=== PATIENT | male | born 1995 | race Hispanic/Latino ===

== ENCOUNTER 2017-02-18 19:23 | Emergency (ER) | payer OTHER ==
[~2017-02-18] VITALS: Ht 165.1 cm; Wt 68.0 kg
[2017-02-18] MEDS ORDERED: POLYMYXIN B-TMP10 ML OPH (20:09)
--- NOTE | 2017-02-18 20:09 | ED EYE COMPLAINT ---
History of Present Illness General Chief Complaint: Eye Problems Stated Complaint: " SOMETHING IN LT EYE" Source: patient Exam Limitations: no limitations Triage Note: PT TO ED C/O "SOMETHING IN MY LEFT EYE" SINCE 1800. UNSURE WHAT IT IS. TRIED FLUSHING WITH WATER Triage Nurses Notes Reviewed? yes HPI: This patient is a 22-year-old male who presented to the emergency department today for evaluation of right eye pain. The patient reported that at approximately 6:00 he was using a saw to cut a wood when he noticed that there was pain in his eye. He reported that it was very windy and thinks that a piece of the wood flew up into his eye. He reported that he irrigated his eye with water and does not know if it came out or not. He reported that he is having 7 out of 10, sharp, nonradiating, constant pain in his right eye. He reported that his vision is blurry. The patient denied any purulent drainage from his eye, headaches, or any other associated symptoms. (LIZ THOMPSON PA-C) Vital Signs & Intake/Output Vital Signs & Intake/Output Vital Signs Date Time Temp Pulse Resp B/P B/P Pulse O2 O2 Flow FiO2 Mean Ox Delivery Rate 02/18 2038 98.5 60 18 112/64 97 Room Air Room Air 02/18 193 98.4 57 18 110/65 99 Room Air ED Intake and Output 02/19 0000 02/18 1200 Intake Total Output Total Balance Patient 150 lb Weight Weight Reported by Patient Measurement Method Allergies Coded Allergies: NO KNOWN ALLERGIES (02/18/17) Reconcile Medications Polymyxin B Sulf/Trimethoprim (Polymyxin B-Tmp Eye Drops) 10,000 UNIT-1 MG/ML DROPS 1 GTT OPH TID CORNEAL ABRASION (ESMER AMOS,WILLIAM Perdomo) Past History Travel History Traveled to [place] past 21 day No Medical History Any Pertinent Medical History? 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 No (LIZ THOMPSON PA-C) Review of Systems Review of Systems Constitutional: Reports: no symptoms. Eyes: Reports: see HPI. Ear: Reports: no symptoms. Nose: Reports: no symptoms. Mouth: Reports: no symptoms. Throat: Reports: no symptoms. Respiratory: Reports: no symptoms. Cardiovascular: Reports: no symptoms. GI: Reports: no symptoms. Musculoskeletal: Reports: no symptoms. Skin: Reports: no symptoms. Neurological/Psychological: Reports: no symptoms. All Other Systems: Reviewed and Negative (LIZ THOMPSON PA-C) Physical Exam General Appearance: well developed/nourished, no apparent distress, alert, awake General Inspection: normal inspection General Inspection: NO PROPTOSIS. nO PERIORBITAL ERYTHEMA OR EDEMA. eomi. nO PAIN WITH EXTRAOCULAR MUSCLE MOVEMENTS. perrla. nORMAL APPEARANCE OF THE LIDS. nO FOREIGN BODY APPRECIATED IN THE EYE. nO FOREIGN BODY WITH LID LIFT. ph 7.5. fLUORESCEIN UPTAKE NOTED. Physical Exam Comments: Well-developed well-nourished person in no acute distress HEENT: Head normocephalic/atraumatic Neck: Supple, no lymphadenopathy Back: Normal gait Respiratory: No respiratory distress. Speaking in full sentences Extremities: No edema, full range of motion Neuro: Alert and oriented x3 Psych: Mood affect normal, normal memory normal judgment. Skin: Warm and dry, no rash on exposed skin (LIZ THOMPSON PA-C) Progress Differential Diagnosis: corneal abrasion, corneal foreign body, conjunctivitis, detached retina, glaucoma, globe rupture, retinal art./v. occlusion Plan of Care: This patient is a 22-year-old male who presented for evaluation of possible foreign body in the right eye. No foreign body appreciated in the eye or with the lid lift. This patient did irrigate his eye prior to coming to the emergency department. Fluorescein uptake was noted; likely corneal abrasion. This patient will be placed on ophthalmic antibiotic eyedrops. He does have an lab support technician who he will be following up with. This patient does not wear contacts. (LIZ THOMPSON PA-C) Departure Departure Disposition: HOME OR SELF CARE Condition: Stable Clinical Impression Primary Impression: Corneal abrasion Qualifiers: Encounter type: initial encounter Laterality: right Qualified Code: S05.01XA - Injury of conjunctiva and corneal abrasion without foreign body, right eye, initial encounter Referrals: JUSTIN CHIN DO (PCP/Family) TARIQ AMOS,EMELI Rivera Additional Instructions: Please use antibiotic eyedrops as prescribed and for the full duration. Do not put anything in your eye such as contacts. Please follow up with either your lab support technician or with the lab support technician's information has been provided to this packet. Return for any worsening symptoms or concerns. Departure Forms: Customer Survey General Discharge Information Prescriptions: Current Visit Scripts Polymyxin B Sulf/Trimethoprim (Polymyxin B-Tmp Eye Drops) 1 GTT OPH TID #10 ML (DONNA HAMILTON,LIZ) PA/PLANT ANATOMY TEACHER Co-Sign Statement Statement: ED Attending supervision documentation- [] I saw and evaluated the patient. I have also reviewed all the pertinent lab results and diagnostic results. I agree with the findings and the plan of care as documented in the PA's/PLANT ANATOMY TEACHER's documentation. [X] I have reviewed the ED Record and agree with the PA's/PLANT ANATOMY TEACHER's documentation. [] Additions or exceptions (if any) to the PAs/PLANT ANATOMY TEACHER's note and plan are summarized below: [] (ESMER AMOS,WILLIAM Perdomo)
[2017-02-18 20:38] VITALS: BP 112/64
== END 2017-02-18 20:38 ==
LOC: ERH 19:23
DX: S05.01XA Injury of conjunctiva and corneal abrasion without foreign body, right eye, initial encounter (principal); X58.XXXA Exposure to other specified factors, initial encounter; Y93.89 Activity, other specified; Y92.9 Unspecified place or not applicable